=== PATIENT | male | born 1985 | race Caucasian/White ===

== ENCOUNTER → 2018-03-03 | Outpatient (REF) | payer OTHER ==
[~2018-03-03] MED LIST: DIPH-1 PO; ESCI10TA8 PO; ESCI20TA8 PO; KET10 PO; LISI5TAB25 PO; ONDA8TAB98 PO; PANT40TA65 PO
[2018-03-03 12:04] LABS: PLATELET COUNT, AUTOMATED 266 K/uL (150-450)
== END ==
PROVIDERS: ATTEND Nurse Practitioner Family
DX: R11.10 Vomiting, unspecified (principal); R19.7 Diarrhea, unspecified
CPT/HCPCS: 82040; 82150; 82247; 82310; 82374; 82435; 82565; 82947; 83690; 84075; 84132; 84155; 84295; 84450; 84460; 84520; 85025

== ENCOUNTER → 2018-04-03 | Outpatient (CLI) | payer OTHER ==
[2018-04-03 09:22] LABS: PLATELET COUNT, AUTOMATED 184 K/uL (150-450)
== END ==
LOC: LAB 09:08
PROVIDERS: ATTEND Internal Medicine
DX: F41.9 Anxiety disorder, unspecified (principal); I10 Essential (primary) hypertension; K21.9 Gastro-esophageal reflux disease without esophagitis
CPT/HCPCS: 36415; 82040; 82247; 82310; 82374; 82435; 82565; 82947; 84075; 84132; 84155; 84295; 84443; 84450; 84460; 84520; 85025

== ENCOUNTER → 2018-08-30 | Outpatient (REF) | payer OTHER ==
[~2018-08-30] MED LIST changes: +LOSA100T69 PO; +LOSA25TA52 PO; +LOSA50TA74 PO
== END ==
PROVIDERS: ATTEND Family Medicine
DX: R19.7 Diarrhea, unspecified (principal)
CPT/HCPCS: 83630; 87177

== ENCOUNTER 2019-04-05 21:27 | Emergency (ER) | payer OTHER ==
[~2019-04-05 21:27] MED LIST changes: -LOSA100T69 PO; +LOSA100T75 PO; -LOSA25TA52 PO; +LOSA25TA57 PO; -LOSA50TA74 PO; +LOSA50TA80 PO
--- NOTE | 2019-04-05 23:12 | ER Report ---
History and Physical Time Seen By MD: 23:00 HPI/ROS CHIEF COMPLAINT: Right hand pain HISTORY OF PRESENT ILLNESS: 34-year-old male patient presents to emergency room with complaint of right hand pain. Patient states that he was working on his truck and was trying to loosen bolt when the wrench slipped slamming his hand against side of the truck. Patient states he has significant amounts of pain to the medial aspect of the right hand. States that he is able to move all his fingers, but is painful. He states he is not taking any medication for this. He denies any numbness or tingling. Allergies: Coded Allergies: Penicillins (Verified Allergy, Unknown, 04/05/19) Home Meds Active Scripts Pantoprazole Sodium (PANTOPRAZOLE SODIUM) 40 Mg Tablet.dr, 40 MG PO QDAY, #90 TAB.SR 3 Refills Prov:PARIS DOE MD 12/30/18 Escitalopram Oxalate (ESCITALOPRAM OXALATE) 20 Mg Tablet, 20 MG PO QDAY, #90 TAB 1 Refill Prov:PARIS DOE MD 12/30/18 Losartan Potassium (LOSARTAN POTASSIUM) 100 Mg Tablet, 100 MG PO QDAY, #90 TAB 2 Refills Prov:PARIS DOE MD 07/02/18 Past Medical/Surgical History Patient has a past medical history of depression, hypertension, reflux. Reviewed Nurses Notes: Yes Hx Smoking: No Smoking Status: Former Smoker Hx Substance Use Disorder: No Hx Alcohol Use: Yes (OCC) Constitutional Vital Sign - Last 24 Hours 04/05/19 23:23 Temp 97.9 Pulse 64 Resp 12 B/P (MAP) 130/81 Pulse Ox 94 O2 Delivery Room Air Physical Exam General appearance: Alert no distress. Respiratory: Chest is non tender, lungs are clear to auscultation. Cardiac: Regular rate and rhythm. Musculoskeletal: Patient does have tenderness to the fifth metacarpal, very mild abrasion to the medial aspect of the hand. Patient has no numbness tingling on palpation. DIFFERENTIAL DIAGNOSIS: After history and physical exam differential diagnosis was considered for fracture, contusion, sprain. Medical Decision Making EKG/Imaging Imaging HAND COMPLETE RIGHT HISTORY: Smashed hand. Pain of fourth and fifth metacarpals. COMPARISON: None. TECHNIQUE: PA, oblique, and lateral views of the right hand. FINDINGS: There is no fracture or dislocation. There is a tiny subchondral cyst at the ulnar base of the proximal phalanx of the fifth digit. IMPRESSION: 1. No acute osseous abnormality of the right hand. Report Dictated By: Nimco Zhao at 04/05/2019 11:31 PM Report E-Signed By: Nimco Zhao at 04/05/2019 11:32 PM ED Course/Re-evaluation ED Course Patient is admitted to an exam room, history and physical were obtained. Differential diagnoses were considered. On examination lungs are clear, heart is regular, patient does have tenderness to the right hand. Does have some swelling to the dorsal medial aspect. X-ray was done which showed no acute fractures. Patient was placed in the Colace splint as described below. He is to follow-up with his primary care provider in the next couple days. Patient did request a note for time off work tomorrow. That was given patient was discharged home. Discuss plan with patient who verbalized understanding and agreement. Procedure: Splint placement. A Colle's splint was applied. After application of the splint I re-examined the patient. The splint was adequately immobilizing the joint and distal to the splint the patient's circulation and sensation was intact. Decision to Disposition Date: Apr 05, 2019 Decision to Disposition Time: 23:26 Depart Departure Latest Vital Signs Vital Signs Date Time Temp Pulse Resp B/P (MAP) Pulse Ox O2 Delivery O2 Flow Rate FiO2 04/05/19 23:23 97.9 64 12 130/81 94 Room Air Impression: Primary Impression: Hand contusion Condition: Improved Disposition: HOME OR SELF-CARE Referrals: PARIS DOE MD (PCP) Patient Instructions: Contusion in Adults (ED) Additional Instructions: Ice the hand 2-3 times a day for 10-15 minutes. Get plenty of rest. Take Tylenol or Ibuprofen as needed for pain. Follow up with your primary care provider in the next week. Return to the ER if condition worsens. Problem Qualifiers Primary Impression: Hand contusion Encounter type: initial encounter Laterality: right Qualified Codes: S60.221A - Contusion of right hand, initial encounter HECTOR FOSS Apr 05, 2019 23:12
[2019-04-05 23:23] VITALS: BP 130/81
--- NOTE | 2019-04-05 23:36 | RADIOLOGY IMAGING REPORT ---
FACILITY: [facility] - [place] PATIENT NAME: Daniel Victoria : 1985 MR: [id number] V: [id number] EXAM DATE: ORDERING PHYSICIAN: HECTOR FOSS TECHNOLOGIST: Location: [facility] [place] Patient: Daniel Victoria : 1985 Visit/Account:[id number] Date of Sevice: 04/05/2019 HAND COMPLETE RIGHT HISTORY: Smashed hand. Pain of fourth and fifth metacarpals. COMPARISON: None. TECHNIQUE: PA, oblique, and lateral views of the right hand. FINDINGS: There is no fracture or dislocation. There is a tiny subchondral cyst at the ulnar base of the proximal phalanx of the fifth digit. IMPRESSION: 1. No acute osseous abnormality of the right hand. Report Dictated By: Nimco Zhao at 04/05/2019 11:31 PM Report E-Signed By: Nimco Zhao at 04/05/2019 11:32 PM WSN:[id number]
== END 2019-04-05 23:33 | disposition home or self-care (01) ==
LOC: ER 23:17
DX: S60.221A Contusion of right hand, initial encounter (principal)
CPT/HCPCS: 73130; 99283; L3763